=== PATIENT | female | born 1990 | race Caucasian/White ===

== ENCOUNTER 2021-07-02 17:25 | Outpatient (CLI) | payer OTHER ==
[~2021-07-02] VITALS: Ht 170.2 cm; Wt 79.0 kg
[2021-07-02 18:08] LABS: BASOPHILS % (AUTO) 0 % (0-1); EOSINOPHILS % (AUTO) 1 % (1-7); LYMPHOCYTES % (AUTO) 17 % (22-44); MEAN CORPUSCULAR HEMOGLOBIN 30.7 pg (27.0-34.8); MEAN CORPUSCULAR HGB CONC 33.8 g/dL (32.4-35.8); MEAN PLATELET VOLUME 6.9 fL (7.4-10.4); MONOCYTES % (AUTO) 9 % (2-9); NEUTROPHILS % (AUTO) 73 % (42-75); PLATELET COUNT 305 x10^3/uL (130-400); RED BLOOD COUNT 3.95 x10^6/uL (3.82-5.3); RED CELL DISTRIBUTION WIDTH 13.1 % (9.6-15.2)
[2021-07-02 18:10] LABS: MICROSCOPIC INDICATED
[2021-07-02 18:18] LABS: ALANINE AMINOTRANSFERASE 27 U/L (12-78); ALBUMIN 2.6 g/dL (3.4-5.0); ANION GAP 5 mmol/L (5-15); CALCIUM 8.1 mg/dL (8.5-10.1); CHLORIDE 107 mmol/L (98-107); CREATININE 0.61 mg/dL (0.55-1.02)
[2021-07-02 18:19] LABS: BILIRUBIN, DIRECT < 0.1 mg/dL (0.1-0.2)
[2021-07-02 18:20] LABS: ALKALINE PHOSPHATASE 92 U/L (45-117); BILIRUBIN,TOTAL 0.2 mg/dL (0.2-1.0); TOTAL PROTEIN 6.2 g/dL (6.4-8.2)
== END 2021-07-02 19:25 | disposition home or self-care (01) ==
LOC: LDOP 17:25
PROVIDERS: ATTEND Obstetrics & Gynecology
DX: O13.2 Gestational [pregnancy-induced] hypertension without significant proteinuria, second trimester (principal); Z3A.26 26 weeks gestation of pregnancy
CPT/HCPCS: 36415; 59025; 80053; 81001; 82248; 82570; 84156; 84550; 85025

== ENCOUNTER 2021-07-29 05:29 | Outpatient (CLI) | payer OTHER ==
[~2021-07-29] VITALS: Ht 170.2 cm; Wt 81.7 kg
[2021-07-29 06:02] LABS: MICROSCOPIC NOT IND
[2021-07-29 06:27] VITALS: BP 118/65
== END 2021-07-29 10:50 | disposition home or self-care (01) ==
LOC: LDOP 05:29
PROVIDERS: ATTEND Obstetrics & Gynecology
DX: O26.893 Other specified pregnancy related conditions, third trimester (principal); R10.9 Unspecified abdominal pain; Z3A.30 30 weeks gestation of pregnancy
CPT/HCPCS: 59025; 76819; 81003; 87086

== ENCOUNTER 2021-07-29 20:06 | Outpatient (CLI) | payer OTHER ==
[~2021-07-29] VITALS: Ht 170.2 cm; Wt 81.7 kg
[2021-07-29 20:30] VITALS: BP 124/65
== END 2021-07-29 22:45 | disposition home or self-care (01) ==
LOC: LDOP 20:06
PROVIDERS: ATTEND Obstetrics & Gynecology
DX: O99.891 Other specified diseases and conditions complicating pregnancy (principal); O26.893 Other specified pregnancy related conditions, third trimester; N13.30 Unspecified hydronephrosis; R10.9 Unspecified abdominal pain; Z3A.30 30 weeks gestation of pregnancy